=== PATIENT | male | born 1945 | race Caucasian/White ===

== ENCOUNTER 2016-09-22 10:46 | Inpatient (IN) | payer MEDICARE, OTHER ==
[~2016-09-22] VITALS: Ht 175.3 cm; Wt 101.6 kg
[2016-09-22 10:46] VITALS: BP_SYST 155
[2016-09-22 11:20] LABS: BASOPHILS % (AUTO) 0.5 % (0.0-2.0); EOSINOPHILS # (AUTO) 0.2 K/uL (0.0-0.4); EOSINOPHILS % (AUTO) 2.8 % (0.0-4.0); HEMATOCRIT 46.1 % (36-54); HEMOGLOBIN 14.5 g/dL (14.0-18.0); LYMPHOCYTES # (AUTO) 1.5 K/uL (1.0-5.5); LYMPHOCYTES % (AUTO) 22.9 % (20.5-51.5); MEAN CORPUSCULAR HEMOGLOBIN 29 pg (27-31); MEAN CORPUSCULAR HGB CONC 32 % (32-36); MEAN CORPUSCULAR VOLUME 91 fL (79.0-98.0); MONOCYTES # (AUTO) 0.6 K/uL (0.0-1.0); MONOCYTES % (AUTO) 8.9 % (1.7-9.3); NEUTROPHILS # (AUTO) 4.5 K/uL (1.8-7.7); NEUTROPHILS % (AUTO) 64.9 % (40.0-70.0); PLATELET COUNT (AUTO) 183 K/uL (130-430); RED BLOOD CELL COUNT(AUTO) 5.05 MIL/uL (4.2-6.2); RED CELL DISTRIBUTION WIDTH 14.4 % (9.0-15.0); WHITE BLOOD COUNT (AUTO) 6.8 K/uL (4.8-10.8)
[2016-09-22 11:31] LABS: CREATININE 1.18 mg/dL (0.55-1.30)
[2016-09-22 11:33] LABS: PROTHROMBIN TIME 10.5 SECS (9.5-12.5)
[2016-09-22 11:35] LABS: ALBUMIN 3.8 g/dL (3.4-4.8); TOTAL BILIRUBIN 0.7 mg/dL (0.0-1.0); TOTAL PROTEIN, SERUM 7.1 g/dL (6.4-8.3)
[2016-09-22] MEDS ORDERED: NITROGLYCERIN 1 INCH (GM) OINT. TD ONE (12:30)
[2016-09-22] MEDS ORDERED: NITROGLYCERIN LINGUAL 400 mCg/SPRAY SL ONE (12:30)
[2016-09-22] MEDS ORDERED: NITROGLYCERIN LINGUAL 400 mCg/SPRAY ONE (12:31)
[2016-09-22] MEDS ORDERED: ONDANSETRON HCL 4 MG/2 ML VIAL IVP PRN (13:30)
[2016-09-22] MEDS ORDERED: POTASSIUM CHLORIDE 10 MEQ TAB.PRT.SR PO PRN (13:30)
[2016-09-22] MEDS ORDERED: ZOLPIDEM TARTRATE 5 MG TABLET PO PRN (13:30)
[2016-09-22] MEDS ORDERED: LORazepam 2 MG/ML VIAL IVP PRN (13:30)
[2016-09-22] MEDS ORDERED: MORPHINE 2 MG/ML INJ. SYRINGE IVP PRN (13:30)
[2016-09-22] MEDS ORDERED: ACETAMINOPHEN 325 MG TABLET PO PRN (13:30)
[2016-09-22] MEDS ORDERED: MAGNESIUM SULFATE 50 ML IV PRN (13:30)
[2016-09-22] MEDS ORDERED: DOCUSATE SODIUM 100 MG CAPSULE PO PRN (13:30)
[2016-09-22 13:45] LABS: BILIRUBIN,URINE NEGATIVE (NEGATIVE); BLOOD, URINE TRACE (NEGATIVE); CLARITY/URINE CLEAR (CLEAR); COLOR,URINE YELLOW (YELLOW); GLUCOSE,URINE NEGATIVE (NEGATIVE); KETONES,URINE NEGATIVE (NEGATIVE); LEUKOCYTE ESTERASE ,URINE NEGATIVE (NEGATIVE); NITRITE, URINE NEGATIVE (NEGATIVE); PROTEIN URINE TRACE (NEGATIVE); UROBILINOGEN,URINE 0.2 (0.2-1.0)
[2016-09-22 13:46] VITALS: BP_SYST 135
[2016-09-22 13:53] LABS: BACTERIA,URINE FEW /HPF (None Seen); MUCUS,URINE 1+ /LPF (None Seen); RBC,URINE 0-3 /HPF (0-3); WBC,URINE 0-3 /HPF (0-3)
[2016-09-22] MEDS ORDERED: LISI2.5T48 PO (15:41)
[2016-09-22] MEDS ORDERED: CARB1TAB8 PO (15:41)
[2016-09-22] MEDS ORDERED: METO25TA6 PO (15:41)
[2016-09-22] MEDS ORDERED: NITSL SL (15:41)
[2016-09-22] MEDS ORDERED: OMEP20CA10 PO (15:41)
[2016-09-22] MEDS ORDERED: ASPI81TA2 PO (15:41)
[2016-09-22] MEDS ORDERED: FEXO180T94 PO (15:41)
[2016-09-22] MEDS ORDERED: WELSR150 PO (15:41)
[2016-09-22] MEDS ORDERED: ALLO300T2 PO (15:41)
[2016-09-22] MEDS ORDERED: CLOP75TA32 PO (15:41)
[2016-09-22] MEDS ORDERED: ISOS60TA4 PO (15:41)
[2016-09-22] MEDS ORDERED: CLIN-76 PO (15:41)
[2016-09-22] MEDS ORDERED: LEVO50TA77 PO (15:41)
[2016-09-22] MEDS ORDERED: ATOR40TA68 PO (15:41)
[2016-09-22] MEDS ORDERED: AMLO2.5T2 PO (15:41)
[2016-09-22] MEDS ORDERED: FINA5TAB3 PO (15:41)
[2016-09-22] MEDS ORDERED: TERA5CAP58 PO (15:41)
[2016-09-22] MEDS ORDERED: NITROGLYCERIN 0.4 MG TAB.SUBL SL PRN (16:00)
[2016-09-22 16:03] VITALS: BP_SYST 137
[2016-09-22 16:54] VITALS: BP_SYST 136
[2016-09-22] MEDS: CLINDAMYCIN HCL 150 MG CAPSULE PO SCH ×2 (18:43→23:16)
[2016-09-22] MEDS: METOPROLOL TARTRATE 25 MG TABLET PO SCH (19:29)
[2016-09-22 19:30] VITALS: BP_SYST 162
[2016-09-22] MEDS ORDERED: ATORVASTATIN 20 MG TABLET PO SCH (21:00)
[2016-09-22] MEDS ORDERED: TERAZOSIN HCL 5 MG CAPSULE (HYTRIN) PO SCH (21:00)
[2016-09-22] MEDS: buPROPion HCL 150 MG TABLET.SA PO SCH (21:01)
[2016-09-22] MEDS: ISOSORBIDE MONONITRATE 30 MG TAB.ER.24H PO SCH (21:01)
[2016-09-22 23:44] VITALS: BP_SYST 116
[2016-09-23 06:04] VITALS: BP_SYST 129
[2016-09-23] MEDS: CLINDAMYCIN HCL 150 MG CAPSULE PO SCH ×2 (06:05→12:00)
[2016-09-23 06:50] LABS: ANION GAP 7 (5-15); CALCIUM 8.4 mg/dL (8.4-11.0); CHLORIDE 103 mmol/L (98-107); CREATININE 1.06 mg/dL (0.55-1.30); GLUCOSE 87 mg/dL (70-99); POTASSIUM 3.9 mmol/L (3.5-5.1); SODIUM SERUM 140 mmol/L (136-145); UREA NITROGEN, BLOOD 13 mg/dL (8-21)
[2016-09-23] MEDS ORDERED: OMEPRAZOLE 20 MG CAPSULE.DR (PriLOSEC) PO SCH (07:00)
[2016-09-23] MEDS ORDERED: LEVOTHYROXINE SODIUM 0.05 MG TABLET PO SCH (07:00)
[2016-09-23 07:11] LABS: GFR AFRICAN AMERICAN 89 mL/min (>90)
[2016-09-23 07:21] LABS: BASOPHILS % (AUTO) 0.3 % (0.0-2.0); EOSINOPHILS # (AUTO) 0.2 K/uL (0.0-0.4); HEMATOCRIT 40.4 % (36-54); HEMOGLOBIN 13.3 g/dL (14.0-18.0); LYMPHOCYTES # (AUTO) 1.3 K/uL (1.0-5.5); LYMPHOCYTES % (AUTO) 16.8 % (20.5-51.5); MEAN CORPUSCULAR HEMOGLOBIN 30 pg (27-31); MEAN CORPUSCULAR HGB CONC 33 % (32-36); MEAN CORPUSCULAR VOLUME 90 fL (79.0-98.0); MONOCYTES # (AUTO) 0.6 K/uL (0.0-1.0); MONOCYTES % (AUTO) 7.4 % (1.7-9.3); NEUTROPHILS # (AUTO) 5.7 K/uL (1.8-7.7); NEUTROPHILS % (AUTO) 72.5 % (40.0-70.0); PLATELET COUNT (AUTO) 161 K/uL (130-430); RED BLOOD CELL COUNT(AUTO) 4.49 MIL/uL (4.2-6.2); RED CELL DISTRIBUTION WIDTH 14.4 % (9.0-15.0); WHITE BLOOD COUNT (AUTO) 7.8 K/uL (4.8-10.8)
[2016-09-23 08:00] VITALS: BP_SYST 142
[2016-09-23] MEDS ORDERED: ALLOPURINOL 300 MG TABLET (ZYLOPRIM) PO SCH (09:00)
[2016-09-23] MEDS ORDERED: LISINOPRIL 5 MG TABLET PO SCH (09:00)
[2016-09-23] MEDS ORDERED: CLOPIDOGREL BISULFATE 75 MG TABLET PO SCH (09:00)
[2016-09-23] MEDS ORDERED: ASPIRIN 81 MG TAB.CHEW PO SCH (09:00)
[2016-09-23] MEDS ORDERED: FINASTERIDE 5 MG TABLET (PROSCAR) PO SCH (09:00)
[2016-09-23] MEDS ORDERED: amLODIPine BESYLATE 5 MG TABLET PO SCH (09:00)
[2016-09-23] MEDS ORDERED: ENOXAPARIN SODIUM 40 MG/0.4 ML SYRINGE SUBCUT ONE (09:00)
[2016-09-23] MEDS: buPROPion HCL 150 MG TABLET.SA PO SCH (10:31)
[2016-09-23] MEDS: ISOSORBIDE MONONITRATE 30 MG TAB.ER.24H PO SCH (10:32)
[2016-09-23] MEDS: METOPROLOL TARTRATE 25 MG TABLET PO SCH (10:46)
[2016-09-23 12:00] VITALS: BP_SYST 131
[2016-09-23 12:17] VITALS: BP_SYST 140
== END 2016-09-23 12:40 | disposition home or self-care (01) | DRG 392 ==
LOC: SED 10:46 → STU 13:21
PROVIDERS: ADMIT General Practice; ATTEND General Practice
DX: K21.9 Gastro-esophageal reflux disease without esophagitis (principal); I25.10 Atherosclerotic heart disease of native coronary artery without angina pectoris; I10 Essential (primary) hypertension; Z96.649 Presence of unspecified artificial hip joint; E11.9 Type 2 diabetes mellitus without complications; E66.9 Obesity, unspecified; Z68.33 Body mass index [BMI] 33.0-33.9, adult; Z95.1 Presence of aortocoronary bypass graft; Z88.6 Allergy status to analgesic agent
CPT/HCPCS: 36415; 71010; 80048; 80053; 80061; 81000-TC; 83605; 83735-TC; 83880; 84484; 85025; 85610-TC; 85730-TC; 87040-TC; 93005; 99285; J1650; J2270